=== PATIENT | female | born 1990 | race Caucasian/White ===

== ENCOUNTER → 2018-12-20 10:24 | Outpatient (CLI) | payer SELFPAY | END | disposition home or self-care (01) | LOC: D.LDO 10:24 | PROVIDERS: ATTEND Obstetrics & Gynecology | DX: O36.8190 Decreased fetal movements, unspecified trimester, not applicable or unspecified (principal); Z3A.00 Weeks of gestation of pregnancy not specified ==

== ENCOUNTER → 2019-04-13 13:46 | Outpatient (CLI) | payer SELFPAY ==
[2019-04-13 14:16] LABS: BASOPHILS 0.2 % (0-2); EOSINOPHILS 1.9 % (0-7); HEMATOCRIT 39.6 % (36.0-48.0); HEMOGLOBIN 13.1 g/dL (12-16); IMMATURE GRANULOCYTES 0.2 % (0-5); LYMPHOCYTES 17.5 % (15-50); MCHC 33.1 g/dL (31.0-37.0); MCV 87.8 fL (80.0-100.0); MEAN PLATELET VOLUME 12.4 fL (7.4-10.4); MONOCYTES 5.7 % (2-11); NEUTROPHILS 74.5 % (40-80); PLATELET COUNT 191 10x3/uL (130-400); RBC 4.51 10x6/uL (4.00-5.40); RDW 13.8 % (11.5-14.5); WBC 9.8 10x3/uL (4.8-10.8)
[2019-04-13 14:33] LABS: CALC OSMOLALITY 277 mosm/kg (275-300); CALCIUM 9.2 mg/dL (8.5-10.1); CARBON DIOXIDE 23.8 mmol/L (21.0-32.0); CHLORIDE - SERUM 105 mmol/L (98-107); CREATININE - SERUM 0.7 mg/dL (0.6-1.3); GLUCOSE 117 mg/dL (74-106); POTASSIUM - SERUM 4.4 mmol/L (3.5-5.1); SODIUM 139 mmol/L (136-145); UREA NITROGEN 10 mg/dL (7-18); eGFR NON AFRICAN AMERICAN > 90 mL/min (90-120)
[2019-04-13 14:34] LABS: APPEARANCE CLEAR (CLEAR); BILIRUBIN NEGATIVE (NEGATIVE); COLOR YELLOW (YELLOW); GLUCOSE NEGATIVE (NEGATIVE); KETONE NEGATIVE (NEGATIVE); NITRITE NEGATIVE (NEGATIVE); PROTEIN NEGATIVE (NEGATIVE); UROBILINOGEN NORMAL (NORMAL)
[2019-04-13 14:36] LABS: BACTERIA FEW /hpf (NEGATIVE); EPITHELIAL CELLS 0-5 /hpf (0-5); RED CELLS - URINE NONE SEEN /hpf (0-5); WHITE CELLS - URINE 0-5 /hpf (NEGATIVE)
[2019-04-13 14:38] LABS: ALBUMIN 2.6 g/dL (3.4-5.0); ALKALINE PHOSPHATASE 150 U/L (46-116); ALT (SGPT) 15 U/L (10-68); BILIRUBIN - DIRECT 0.04 mg/dL (0.00-0.30); BILIRUBIN - INDIRECT 0.11 mg/dL (0.00-1.00); BILIRUBIN - TOTAL 0.15 mg/dL (0.2-1.3); PROTEIN - SERUM 6.9 g/dL (6.4-8.2); URIC ACID 4.7 mg/dL (2.6-7.2)
[2019-04-14 18:36] LABS: PROTEIN - URINE 13.4 mg/dL (0.0-11.9)
== END | disposition home or self-care (01) ==
LOC: D.LDO 13:46
PROVIDERS: ATTEND Obstetrics & Gynecology
DX: O26.899 Other specified pregnancy related conditions, unspecified trimester (principal); Z3A.00 Weeks of gestation of pregnancy not specified

== ENCOUNTER 2019-04-27 20:07 | Inpatient (IN) | payer BC ==
[~2019-04-27] VITALS: Ht 167.6 cm; Wt 123.4 kg
[2019-04-27] MEDS ORDERED: ALBUTEROL SULF8.5 GM (21:35)
[2019-04-27] MEDS ORDERED: ZITHROMAX250 MG (21:35)
[2019-04-27 21:36] VITALS: BP 140/82; Ht 167.6 cm; Wt 123.4 kg
[2019-04-27 23:10] LABS: HEMATOCRIT 41.1 % (36.0-48.0); HEMOGLOBIN 13.4 g/dL (12-16); MCH 28.6 pg (26.0-34.0); MCHC 32.6 g/dL (31.0-37.0); MCV 87.6 fL (80.0-100.0); MEAN PLATELET VOLUME 13.2 fL (7.4-10.4); RBC 4.69 10x6/uL (4.00-5.40); RDW 14.2 % (11.5-14.5); WBC 8.3 10x3/uL (4.8-10.8)
[2019-04-28 07:25] LABS: APPEARANCE HAZY (CLEAR); BILIRUBIN NEGATIVE (NEGATIVE); COLOR YELLOW (YELLOW); GLUCOSE NEGATIVE (NEGATIVE); KETONE NEGATIVE (NEGATIVE); NITRITE NEGATIVE (NEGATIVE); PROTEIN NEGATIVE (NEGATIVE); SPECIFIC GRAVITY 1.015 (1.005-1.020); UROBILINOGEN NORMAL (NORMAL)
[2019-04-28] MEDS ORDERED: ALBUTEROL SULF8.5 GM INH (07:27)
[2019-04-28 07:31] LABS: BACTERIA MODERATE /hpf (NEGATIVE); EPITHELIAL CELLS 0-5 /hpf (0-5); RED CELLS - URINE NONE SEEN /hpf (0-5); WHITE CELLS - URINE 0-5 /hpf (NEGATIVE)
[2019-04-29 08:10] LABS: RAPID PLASMA REAGIN Non Reactive (Non Reactive)
[2019-04-30] VITALS (15 sets, daily range): BP systolic 107–145; BP diastolic 55–75
--- NOTE | 2019-04-30 01:04 | NUR ---
REC'D BACK TO ROOM FROM RECOVERY. VSS. FUNDUS FIRM MIDLINE AND U1 WITH SMALL AMT RUBRA LOCHIA. AWAKE, ALERT AND ORIENTED X3. TOWELS, PERIPAD, AND CHUX CHANGED WITH QBL OF 18 MLS. BREATH SOUNDS CLEAR AND EQUAL, RESP REGULAR AND UNLABORED, NO S/S OF DISTRESS NOTED. BOWEL SOUNDS PRESENT AND HYPOACTIVE X4 QUADRANTS. DRSG TO LOWER TRANSVERSE ABD INCISION CLEAN DRY AND INTACT WITH NO DRAINAGE NOTED. 225 MLS CONCENTRATED YELLOW URINE EMPTIED FROM UROMETER, ALBERTO CONTINUES TO DRAIN TO BEDSIDE DRAINAGE. NS WITH 20 UNITS PIT TO PUMP AT 125 MLS/HR PER ORDER. C/O PAIN 4/10 ABD, DENIES NEED FOR INTERVENTION AT THIS TIME. REQUESTING TO BF , WILL NOTIFY NBN. ICE PACK TO LOWER TRANSVERSE ABD INCISION. INSTRUCTED ON INCENTIVE SPIROMETER USE WITH RETURN DEMONSTRATION X3 WITH GOOD EFFORT. INSTRUCTED ON SPLINTING, VERBALIZES UNDERSTANDING. SCD'S ON BLE. FAMILY AT BEDSIDE. BED IN LOW POSITION WITH SRUP X2. CALL LIGHT AND PHONE WITHIN REACH. WILL CONTINUE TO MONITOR.
--- NOTE | 2019-04-30 01:22 | NUR ---
V/S REMAIN STABLE. CONTINUES ON 2L O2 NC. FUNDUS REMAINS FIRM, MIDLINE AND U1 WITH SCANT RUBRA LOCHIA, NO CLOTS NOTED. WILL CONTINUE TO MONITOR. PT CONVERSING WITH FAMILY MEMBERS, DENIES NEEDS.
--- NOTE | 2019-04-30 01:31 | NUR ---
FUNDUS IS FIRM, MIDLINE. 2U. MAGALY PAD IN PLACE. MODERATE RUBRA LOCHIA NOTED. NO CLOTS PRESENT. WILL CONTINUE TO MONITOR.
--- NOTE | 2019-04-30 01:33 | NUR ---
PATIENT MEETS DISCHARGE CRITERIA FOR PACU AT 0056. TRANSPORTED VIA BED TO [facility] WITH BEL ECHEVERRIA CRNA.
--- NOTE | 2019-04-30 01:54 | NUR ---
VSS. FUNDUS FIRM MIDLINE AND U1 WITH 6 MLS RUBRA LOCHIA, NO CLOTS NOTED. O2 OFF PT REQUEST. BONDING WITH AT THIS TIME. PERICARE DONE, PAD CHANGED. WILL CONTINUE TO MONITOR.
--- NOTE | 2019-04-30 02:57 | NUR ---
VSS. PAIN 2/10, CRAMPING AND SORENESS. FUNDUS FIRM WITH LEFT SHIFT, ALBERTO NOTED TO NOT BE DRAINING WELL, REPOSITIONED WITH IMMEDIATE RETURN OF 100 MLS CONCENTRATED YELLOW URINE, FUNDUS FOLLOW DRAINING OF BLADDER MIDLINE. SMALL AMT RUBRA LOCHIA NOTED TO MAGALY PAD WITH NO CLOTS, 17 MLS QBL. PERICARE AND CATH CARE DONE. MAGALY PAD CHANGED. REPOSITIONED TO RIGHT SIDE. INCENTIVE SPIROMETER DONE WITH ENCOURAGEMENT WITH GOOD EFFORT, COUGH AND DEEP BREATHING DONE. 2+ BLE EDEMA, SCD'S ON BLE. DRSG TO LOWER TRANSVERSE ABD INCISION CLEAN DRY AND INTACT. APPLE AND CRANBERRY JUICE PROVIDED. DENIES ADDITIONAL NEEDS. BED IN LOW POSITION WITH SRUP X2. CALL LIGHT AND PHONE WITHIN REACH. WILL CONTINUE TO MONITOR.
--- NOTE | 2019-04-30 03:27 | NUR ---
ROOM CHECK DONE. VSS. EASILY AROUSES TO VOICE. INCENTIVE SPIROMETER USED WITH GOOD EFFORT X5. COUGH AND DEEP BREATHING DONE WITH GOOD EFFORT. FUNDUS FIRM MIDLINE AND U1 WITH SMALL RUBRA LOCHIA TO PERIPAD, NO CLOTS NOTED. SCD'S ON BLE. PAIN 2/10, DENIES NEED FOR INTERVENTION. BED IN LOW POSITION WITH SRUP X2. CALL LIGHT AND PHONE WITHIN REACH. WILL CONTINUE TO MONITOR.
--- NOTE | 2019-04-30 04:22 | NUR ---
VSS. FUNDUS FIRM, MIDLINE AND U1 WITH SMALL AMT RUBRA LOCHIA, NO CLOTS NOTED. REPOSITIONED TO LEFT SIDE, INCENTIVE SPIROMETER DONE WITH GOOD EFFORT X6, COUGH AND DEEP BREATHING DONE WITH GOOD EFFORT. DRSG TO LOWER TRANSVERSE ABD INCISION REMAINS CLEAN DRY AND INTACT. SCD'S ON BLE. PAIN 2-3/10, DENIES NEED FOR INTERVENTION. INFANT REMAINS IN NBN. BED IN LOW POSITION WITH SRUP X2. CALL LIGHT AND PHONE WITHIN REACH. WILL CONTINUE TO MONITOR.
--- NOTE | 2019-04-30 05:30 | NUR ---
C/O ABD AND INCISIONAL PAIN 5/10. 1 MG HYDROMORPHONE GIVEN PER ORDER AND PT REQUEST. INFANT TO BEDSIDE, ASSISTED WITH BF. VSS. FUNDUS FIRM, MIDLINE AND U1 WITH SMALL AMT RUBRA LOCHIA, NO CLOTS. 19 MLS QBL TO PERIPAD. SCD'S REMAIN ON BLE. WILL CONTINUE TO MONITOR.
--- NOTE | 2019-04-30 06:03 | NUR ---
PAIN REASSESSMENT COMPLETED, RESTING QUIETLY WITH EYES CLOSED, RESP REGULAR AND UNLAOBRED, NO S/S OF DISTRESS NOTED. PT NOT DISTURBED TO ALLOW FOR REST. INFANT IN NBN. WILL CONTINUE TO MONITOR.
--- NOTE | 2019-04-30 06:54 | NUR ---
TORADOL GIVEN PER ORDER. C/O PAIN 08/26. PERICARE DONE, PADS CHANGED, I&O DONE PER FLOWSHEET. REPOSITIONED TO BACK. INCENTIVE SPIROMETER DONE X10 WITH GOOD EFFORT, COUGH AND DEEP BREATHING DONE. CHUX CHANGED. SCD'S REMAIN ON BLE. BED IN LOW POSITION WITH SRUP X2. CALL LIGHT AND PHONE WITHIN REACH. WILL CONTINUE TO MONITOR.
--- NOTE | 2019-04-30 07:00 | NUR ---
REPORT RECEIVED FROM Khari COOK RN.
--- NOTE | 2019-04-30 08:30 | NUR ---
ASSESSMENT COMPLETED. SEE FLOWSHEET. NO COMPLAINTS OR NEEDS AT THIS TIME.
--- NOTE | 2019-04-30 09:10 | NUR ---
IV IN RAC SLIGHTLY RED AND UNCOMFORTABLE. IV IN RAC DC'D. CATHETER INTACT. PRESSURE APPLIED. NO BLEEDING NOTED. BANDAGE APPLIED. IV IN LAC SALINE LOCKED. FLUSHED WITH 10CC NS WITHOUT DIFFICULTY. ALBERTO CATHETER D/C'D WITHOUT DIFFICULTY.
--- NOTE | 2019-04-30 10:30 | NUR ---
DR. GARCIA HERE TO SEE PATIENT.
--- NOTE | 2019-04-30 11:00 | OP ---
PATIENT NAME: SUKHDEV RANDALL MEDICAL RECORD: [id number] :91 LOCATION:[id number] ADMISSION DATE:04/27/19 SURGEON: NASIR GARCIA MD DATE OF OPERATION: 04/30/2019 PREOPERATIVE DIAGNOSES: 1. Gestational hypertension at 39 weeks. 2. Nonreassuring tracing. 3. Morbid obesity. POSTOPERATIVE DIAGNOSES: 1. Gestational hypertension at 39 weeks. 2. Nonreassuring tracing. 3. Morbid obesity. PROCEDURE: Primary low transverse section. SURGEON: Nasir Garcia MD CURTAIN DRIER: Luciano Snyder. ANESTHETIC: Continuous lumbar epidural. FINDINGS: Viable male infant, vertex presentation, weight 3360 grams with 9 and 9. Uterus, tubes, and ovaries are unremarkable. 7-8 cm subcutaneous tissue between the skin and fascia. SPECIMEN REMOVED: Placenta. SPECIMEN DISPOSITION: Discarded. ESTIMATED BLOOD LOSS: 800 cc. URINE OUTPUT: 50 cc of concentrated urine. FLUIDS: 1600 cc of lactated Ringer's. DRAINS: Flores to gravity. COMPLICATIONS: None. INDICATIONS: The patient is a 28-year-old G1, para 0 at 39 weeks gestation, undergoing induction of labor for gestational hypertension. The patient is induced with misoprostol and eventually began on Pitocin. Amniotomy was performed in the mid-morning of 04/29/2019. The patient progressed in active labor and at 8 cm had 2 occurrences of repetitive late decelerations and a category 2 strip responding to cessation, Oxytocin, O2, fluid, and positioning. After the second event, the patient was counseled and was decided to move forward with primary low transverse section. DESCRIPTION OF PROCEDURE: After informed consent was assured, the patient was taken to the operating room where anesthetic was assessed and found to be adequate. A low transverse incision was made on the abdomen and carried down to the underlying layer of the fascia. The fascia was opened in the midline and extended laterally. Rectus bellies were in the midline and the OPERATIVE REPORT [id number] SUKHDEV RANDALL peritoneum was entered bluntly. Peritoneal opening was extended with good visualization of the bladder, and an Deyvi retractor was inserted and tightened. Fany bladder blade was inserted. Bladder flap was developed and the bladder blade was inserted into the space. Low transverse hysterotomy was performed and infant delivered onto the abdomen atraumatically noting a nuchal cord, which was reduced. Infant was passed to the attendant after the cord was doubly clamped and cut. Placenta was removed after obtaining cord blood sample. Uterus remained in situ as the close was performed. The uterus was swept with a dry sponge. Hysterotomy was closed with a running stitch of chromic. The rectus bellies were approximated well in the midline and are inspected and found to be hemostatic. The fascia was now closed with looped PDS. Two layers of plain gut stitches were placed on the fat layers between the fascia and the skin. Skin was reapproximated with jeff and sterile dressing applied. Sponge, lap, needle counts were correct times 2. The patient was taken from the operating room and taken to the PACU in stable condition. TRANSINT:[id number] Voice Confirmation ID: [id number] DOCUMENT ID: [id number] NASIR GARCIA MD at 1100 CC: [id number] DICTATION DATE: 04/30/19 0048 MANAGER RETAIL: 04/30/19 0907 ADM IN [facility] [address] [place] [address]
--- NOTE | 2019-04-30 11:00 | NUR ---
ASSISTED TO BATHROOM. VOIDED WITHOUT DIFFICULTY. HAT IN TOILET BUT URINE MISSED HAT. PT. STATES SHE WOULD LIKE TO SHOWER WHILE SHE IS UP. ASSISTED INTO SHOWER. CHC GIVEN FOR USE IN SHOWER. LINENES CHANGED. FAMILY AT BEDSIDE.
--- NOTE | 2019-04-30 11:15 | NUR ---
REQUESTS PAIN MED. PERCOCET 5MG GIVEN PO. FAMILY AT BEDSIDE. HAD PATIENT DO INCENTIVE SPIROMETER. ENCOURAGED TO USE SPIROMETER 3-4X PER HOUR, 3-5 BREATHS EACH USE. STATES UNDERSTANDING. ENCOURAGED PATIENT TO AMBULATE IN HALLWAY.
--- NOTE | 2019-04-30 13:30 | NUR ---
AMBULATED IN HALLWAY WITH FAMILY.
--- NOTE | 2019-04-30 15:32 | NUR ---
RESTING IN BED WITH IN ARMS . REQUESTS PAIN MEDICINE. PERCOCET GIVEN.
--- NOTE | 2019-04-30 16:30 | NUR ---
PT STATES SHE FEELS GAS BUT IS NOT PASSING GAS YET. VOIDING WITHOUT DIFFICULTY. NO COMPLAINTS OR NEEDS AT THIS TIME.
--- NOTE | 2019-04-30 16:39 | NUR ---
ABDOMENAL DRESSING REMOVED. INCISION CLEAN, DRY, INTACT WITH OLIVER. NO DRAINAGE NOTED FROM INCISION SITE. MAGALY PAD APPLIED TO AREA TO KEEP INCISION DRY.
--- NOTE | 2019-04-30 17:49 | NUR ---
VISITORS AT BEDSIDE. PT. C/O MILD HEADACHE. VITAL SIGNS TAKEN. BP WNL. TORADOL WAS GIVEN AT 1700 AND NEXT PERCOCET DUE AT 1930. PT STATES SHE IS OK TO WAIT FOR PAIN MEDICINE. EATING TAKE OUT BROUGHT IN BY VISITORS. NO OTHER COMPLAINTS AT THIS TIME.
--- NOTE | 2019-04-30 18:25 | NUR ---
AMBULATING IN HALLWAY WITH SISTER, PUSHING BABY IN OPEN CRIB. NO ASSISTANCE NEEDED TO AMBULATE; TOLERATING WELL.
--- NOTE | 2019-04-30 19:38 | NUR ---
SHIFT ASSESSMENT COMPLETED PER FLOWSHEET. VSS. FUNDUS FIRM, MIDLINE AND U2 WITH SCANT RUBRA LOCHIA, NO CLOTS NOTED. REFUSES SCD'S. C/O OF "GAS PAIN" AND REQUEST MEDICATIONS TO RELIEVE. DISCUSSED WITH PT LAYING ON LEFT SIDE WITH RIGHT LEG BENT AT KNEE UP TO ABD AND USE OF PRUNE JUICE. PT AGREEABLE TO REPOSITION TO LEFT SIDE, ASSISTED TO PRONE POSITION. DR. GARCIA NOTIFIED OF PT COMPLAINTS AND REQUEST FOR MEDS, ORDERS REC'D. ENCOURAGED PT TO CONTINUE TO AMBULATE, VERBALIZES UNDERSTANDING AND DENIES QUESTIONS. BED IN LOW POSITION WITH SRUP X2. CALL LIGHT AND PHONE WITHIN REACH. INFANT IN OPEN CRIB AT BEDSIDE. PT NOTED TO BE FLUSHED, REPORTS THAT SHE IS HOT, ROOM TEMP DECREASED SLIGHTLY. WILL CONT TO MONITOR.
--- NOTE | 2019-04-30 20:13 | NUR ---
PAIN REASSESSMENT COMPLETED, 07/27. DENIES NEED FOR ADDITIONAL INTERVENTION. APPLE AND CRANBERRY JUICE PROVIDED. INFANT REMAINS AT BEDSIDE, RESTING QUIETLY. BED IN LOW POSITION WITH SRUP X2. CALL LIGHT AND PHONE WITHIN REACH.
--- NOTE | 2019-04-30 20:50 | NUR ---
STANDBY ASSIST TO BR. VOIDED, QUARTER SIZED CLOT NOTED IN TOILET, SCANT RUBRA LOCHIA NOTED TO PERIPAD. PERICARE PER PT. BACK TO BED. POSITIONED TO LEFT RECUMBENT POSITION. PRUNE JUICE AND SPRITE MIXTURE PROVIDED PER REQUEST. PLACED IN PT'S ARMS. DENIES NEEDS. BED IN LOW POSITION WITH SRUP X2. CALL LIGHT AND PHONE WITHIN REACH. WILL CONTINUE TO MONITOR.
--- NOTE | 2019-04-30 22:06 | NUR ---
BF AT THIS TIME. DENIES NEEDS. BED IN LOW POSITION WITH SRUP X2. CALL LIGHT AND PHONE WITHIN REACH. WILL CONTINUE TO MONITOR.
--- NOTE | 2019-04-30 23:35 | NUR ---
RESTING QUIETLY WITH EYES CLOSED IN SEMI-FOWLERS POSITION. RESP REGULAR AND UNLABORED, NO S/S OF DISTRESS NOTED. SCD'S OFF. PT NOT DISTURBED TO ALLOW FOR REST. BED IN LOW POSITION WITH SRUP X2. CALL LIGHT AND PHONE WITHIN REACH. WILL CONTINUE TO MONITOR.
--- NOTE | 2019-05-01 00:20 | NUR ---
CALLS VIA CALL LIGHT AND REQUESTS PAIN MEDICATION FOR INCISIONAL AND ABD PAIN 11/26. TORADOL AND PERCOCET GIVEN PER ORDER AND PT REQUEST. VSS. FUNDUS FIRM MIDLINE AND U2 WITH SCANT RUBRA LOCHIA, NO CLOTS. PT AMBULATORY IN BROCK AT THIS TIME. MOM, COLACE, AND MIRALAX ALSO PROVIDED. REPORTS THAT PASSED "A LITTLE GAS A FEW MINUTES AGO." EDUCATED ON MEDS, VERBALIZES UNDERSTANDING AND DENIES QUESTIONS. STEADY GAIT NOTED, WILL CONTINUE TO MONITOR.
[2019-05-01 00:30] VITALS: BP 121/64
--- NOTE | 2019-05-01 01:05 | NUR ---
PAIN REASSESSMENT COMPLETED. 06/26, DENIES NEED FOR ADDITIONAL INTERVENTION. CONTINUES TO REFUSE SCD'S. APPLE JUICE AND WATER PROVIDED. BED IN LOW POSITION WITH SRUP X2. CALL LIGHT AND PHONE WITHIN REACH. WILL CONTINUE TO MONITOR.
--- NOTE | 2019-05-01 02:58 | NUR ---
INFANT OUT TO ROOM AND PLACED IN PT ARMS FOR BF. ASSISTED PT PER REQUEST WITH GETTING INFANT LATCHED TO RIGHT BREAST USING NIPPLE SHIELD, WITH RETURN DEMONSTRATION FROM PT. GOOD LATCH, SUCK AND SWALLOW NOTED AT 0308. PT DENIES NEEDS AT THIS TIME. WILL CONTINUE TO MONITOR. BED IN LOW POSITION WITH SRUP X2. CALL LIGHT AND PHONE WITHIN REACH.
[2019-05-01 04:31] VITALS: BP 120/67
--- NOTE | 2019-05-01 04:31 | NUR ---
UP TO BR INDEPENDENTLY. C/O ABD AND INCISIONAL DISCOMFORT 7-11/26, PERCOCET GIVEN PER ORDER AND PT REQUEST. VSS. FUNDUS FIRM, MIDLINE AND U2 WITH SCANT RUBRA LOCHIA, NO CLOTS NOTED. REFUSES SCD'S. APPLE AND CRANBERRY JUICE PROVIDED. DENIES ADDITIONAL NEEDS. BED IN LOW POSITION WITH SRUP X2. CALL LIGHT AND PHONE WITHIN REACH. WILL CONTINUE TO MONITOR.
--- NOTE | 2019-05-01 05:21 | NUR ---
PAIN REASSESSMENT COMPLETED. RESTING QUIETLY WITH EYES CLOSED LAYING ON LEFT SIDE. RESP REGULAR AND UNLABORED, NO S/S OF DISTRESS NOTED. BED IN LOW POSITION WITH SRUP X2. CALL LIGHT AND PHONE WITHIN REACH. WILL CONTINUE TO MONITOR.
--- NOTE | 2019-05-01 06:29 | NUR ---
TORADOL GIVEN PER ORDER. PAIN 4/10. DENIES NEEDS. BED IN LOW POSITION WITH SRUP X2. CALL LIGHT AND PHONE WITHIN REACH. WILL CONTINUE TO MONITOR.
[2019-05-01 06:44] LABS: BASOPHILS 0.1 % (0-2); EOSINOPHILS 1.2 % (0-7); HEMATOCRIT 31.8 % (36.0-48.0); HEMOGLOBIN 10.2 g/dL (12-16); IMMATURE GRANULOCYTES 0.2 % (0-5); LYMPHOCYTES 10.9 % (15-50); MCH 28.3 pg (26.0-34.0); MCHC 32.1 g/dL (31.0-37.0); MCV 88.3 fL (80.0-100.0); MEAN PLATELET VOLUME 12.5 fL (7.4-10.4); MONOCYTES 6.4 % (2-11); NEUTROPHILS 81.2 % (40-80); RDW 14.5 % (11.5-14.5); WBC 13.1 10x3/uL (4.8-10.8)
[2019-05-01 06:49] LABS: PLATELET COUNT 135 10x3/uL (130-400)
[2019-05-01 08:00] VITALS: BP 135/70
--- NOTE | 2019-05-01 08:00 | NUR ---
assessment done- verbal responses appro to questions. sitting up in bwed eating breakfast. states that is passing gas very little. encouraged to walk more. jeff noted at bikini line incision- wnl in appearance. baby brought to room.
--- NOTE | 2019-05-01 08:29 | NUR ---
REQUESTING VAUGHN MEDICATION - RATES PAIN A 7 WHEN MOVING AROUND. MED GIVEN.
--- NOTE | 2019-05-01 09:30 | NUR ---
UP TO SHOWER- LINENS CHANGED. TOLERATED WELL.
--- NOTE | 2019-05-01 10:05 | NUR ---
AMBULATING IN HALLWAYS.
--- NOTE | 2019-05-01 11:00 | NUR ---
states is passing gas. denies needs.
--- NOTE | 2019-05-01 12:09 | NUR ---
RINGS CALL LIGHT- REQUESTING COLACE AND MIRALAX TO HELP WITH GAS.
[2019-05-01 12:19] VITALS: BP 120/64
--- NOTE | 2019-05-01 14:20 | NUR ---
DR GARCIA IN UNIT TO SEE PT.
--- NOTE | 2019-05-01 17:18 | NUR ---
UP AND ABOUT IN ROOM NEEDED. STATES THAT HAS AMBULATED IN HALLWAY. STATES IS PASSING GAS. RATES PAIN A 10 ON SCALE OF 0-10- PAIN MED GIVEN.
--- NOTE | 2019-05-01 18:21 | NUR ---
RESTING IN BED -TALKING WITH VISITORS.
--- NOTE | 2019-05-01 20:10 | NUR ---
PT AT THIS TIME. DENIES PAIN OR NEEDS AT THIS TIME. Maynor KING RN
[2019-05-01 21:07] VITALS: BP 136/63
--- NOTE | 2019-05-01 21:07 | NUR ---
PT REC'D IN BED AT THIS TIME. DENIES PAIN. ASSESSMENT PER FLOWSHEET. VSS. Maynor KING RN
--- NOTE | 2019-05-01 22:30 | NUR ---
PT STATES THAT SHE IS HAVING RT SHOULDER PAIN AT THIS TIME. PT INSTRUCTED TO AMBULATE TO PASS GAS. PT UP TO AMBULATE. Maynor KING RN
--- NOTE | 2019-05-01 22:56 | NUR ---
PT MEDICATED FOR PAIN AND GAS AT THIS TIME. EILL CONTINUE TO MONITOR. Maynor KING RN
--- NOTE | 2019-05-02 00:10 | NUR ---
PT RESTING COMFORTABLY AT THIS TIME. Maynor KING RN
--- NOTE | 2019-05-02 02:30 | NUR ---
PT RESTING COMFORTABLY THIS AM. DID NOT AWAKEN. Maynor KING RN
[2019-05-02 03:58] VITALS: BP 144/83
--- NOTE | 2019-05-02 04:05 | NUR ---
PT MEDICATED FOR PAIN THIS AM. VSS. Maynor KING RN
--- NOTE | 2019-05-02 07:08 | NUR ---
BEDSIDE REPORT FROM LUÍS MOONEY. PT UP TO BATHROOM, AMBULATING IN ROOM. STATES SHE HAS BEEN PASSING GAS, BUT NO BM. PT STATES PAIN IS MILD, AND DENIES NEED FOR PAIN MEDICAITON. PT STATES SHE WANTS TO "STAY AWAY FROM NARCOTICS". WILL ADMIN SCHEDULED TORADOL ORDERED PER SCHEDULE. PT TO BED, HANDED TO PT TO FEED. PT DENIES NEEDS AT THIS TIME. SRUx2. CL IN REACH. WILL CONT TO MONITOR.
[2019-05-02 07:52] VITALS: BP 138/71
--- NOTE | 2019-05-02 07:52 | NUR ---
THIS RN TO ROOM FOR SHIFT ASSESSMENT. PEE, RN AT BEDSIDE OBTAINING VS. VSS. SEE FLOWSHEET FOR DOC. PT RATES PAIN 3/10 AT THIS TIME, DENIES NEED FOR INTERVENTION. ABD INCISION IS C/D WITH OLIVER INTACT. REDNESS NOTED ABOVE INCISION SITE. NO HEAT FELT OVER REDDENED AREA. PT DENIES FEELING ADDITIONAL TENDERNESS IN AREA. WILL NOTIFY MD AND CONT TO MONITOR. FF, ML, U/1. SMALL RUBRA LOCHIA. MILD GENERALIZED EDEMA NOTED TO LE BILAT, NON-PITTING. 2+ PEDAL PULSES BILAT. NEG HOMANS SIGN BILAT. D/C TO HOME DISCUSSED, PT STATES SHE IS READY TO GO HOME TODAY.
--- NOTE | 2019-05-02 09:08 | NUR ---
DR GARCIA CALLS UNIT, STATES HE WILL BE OVER TO ROUND ON PT SHORTLY AND WILL D/C TO HOME. ORDER RECEIVED TO PROCEED WITH ENTERING D/C ORDER NOW.
--- NOTE | 2019-05-02 09:24 | NUR ---
PT UP AMBULATING IN HALLS, DENIES NEEDS. STATES SHE IS GETTING READY FOR D/C TO HOME.
--- NOTE | 2019-05-02 09:40 | NUR ---
DR GARCIA TO ROOM FOR ROUNDING, ASSESSES PT AND REDNESS ABOVE INCISION REPORTED BY THIS RN. DR GARCIA ORDERS TO PROCEED WITH DISCHARGE TO HOME, OR ROOMING IN IF IS NOT DISCHARGED TODAY. ORDER RECEIVED TO SCHEDULE PT TO FOLLOW UP IN CLINIC ON WEDNESDAY FOR STAPLE REMOVAL. WILL PROCEED ORDERED.
--- NOTE | 2019-05-02 10:40 | NUR ---
THIS RN TO ROOM FOR SCHEDULED TORADOL ADMIN. TORADOL DROPPED ON FLOOR, WASTED IN PYXIS AND NEW TAB PULLED. PT ADMIN TORADOL ORDERED PO, SEE EMAR FOR DOC. PT SITTING ON BEDSIDE COUCH FEEDING INFANT. DENIES NEEDS AT THIS TIME. WILL CONT TO MONITOR.
--- NOTE | 2019-05-02 12:09 | NUR ---
THIS RN TO ROOM FOR PT CHECK. PT SITTING UP ON BEDSIDE COUCH, TALKING ON PHONE. PT RATES PAIN 5/10, REQUESTS ADDITIONAL PAIN MED. STATES TORADOL IS HELPING BUT SHE IS STILL HURTING. PEROCOCET 5/325MG ADMIN ORDERED, SEE EMAR FOR DOC. PT ALSO PROVIDED WITH CRANBERRY JUICE PER REQUEST. PT DENIES FURTHER NEEDS AT THIS TIME, STATES SHE IS JUST WAITING TO SEE IF SHE CAN D/C HOME. WILL CONT TO MONITOR.
[2019-05-02] MEDS ORDERED: IBUPROFEN800 MG PO (13:15)
[2019-05-02] MEDS ORDERED: PERCOCET 7.5/321 TAB PO (13:16)
--- NOTE | 2019-05-02 14:05 | NUR ---
PT AMBULATING IN HALLWAY, DENIES NEEDS AT THIS TIME. STATES SHE KNOWS IS NOT GOING TO BE DISCHARGED TODAY, QUESTIONING WHEN SHE WILL BE ROOMED IN. WILL PROCEED WITH DISCHARGING PT TO ROOMING IN [place].
--- NOTE | 2019-05-02 14:29 | NUR ---
DISCHARGE INSTRUCTIONS AND PRESCRIPTIONS GIVEN BY LUÍS BARBOUR. PT VERBALIZES UNDERSTANDING, SIGNS CHART COPIES. WILL MOVE PT TO ROOM ON [facility] TO ROOM IN.
--- NOTE | 2019-05-02 14:45 | NUR ---
PT TRANSFERRED TO ROOM 12[address] ON [address] TO ROOM IN. TOWELS AND LINENS PROVIDED. TRANSFERRED VIA BASSINETTE WITH PT, CHEN NOTIFIED OF ROOM CHANGE. WILL NOTIFY DIETARY TO CONTINUE SENDING PT TRAYS TO ROOM 1222. PT'S SISTER TO GET PRESCRIPTIONS FILLED FOR PAIN CONTROL POST DISCHARGE.
== END 2019-05-02 14:45 | disposition home or self-care (01) | DRG 788 ==
LOC: D.LD 20:07 → D.WS 05-02 14:45
PROVIDERS: Obstetrics & Gynecology; ADMIT Student in an Organized Health Care Education/Training Program; ATTEND Student in an Organized Health Care Education/Training Program
PROC: 10D00Z1 Extraction of Products of Conception, Low, Open Approach (ICD-10-PCS; principal; 2019-04-30)
DX: O99.214 Obesity complicating childbirth (principal); E66.01 Morbid (severe) obesity due to excess calories; Z3A.39 39 weeks gestation of pregnancy; Z37.0 Single live birth; O13.4 Gestational [pregnancy-induced] hypertension without significant proteinuria, complicating childbirth; O62.1 Secondary uterine inertia